=== PATIENT | female | born 2000 | race Two or more races ===

== ENCOUNTER 2025-07-26 22:43 | Emergency (ER) | payer MEDICAID, SELFPAY ==
[2025-07-26 22:44] VITALS: BMI 21.4
[2025-07-26 23:25] VITALS: BP 101/63; PULSE 62; RESP 16; TEMP 36.7; O2SAT 98
--- NOTE | 2025-07-27 00:24 | EDNOTE_ITS ---
Lower Extremity Injury RME/HPI General Chief Complaint: Extremity Problem,Nontraumatic Stated Complaint: LEFT KNEE POPPED Time Seen by Provider: 07/27/25 00:19 Arrival date/time: 07/26/25 22:43 25F with no significant PMH presents to ED with L knee pain after she twisted it and heard a pop. Limitations: no limitations Related Data Previous Rx's ?Medication ?Instructions ?Recorded dicyclomine 10 mg capsule 10 mg PO Q8HR #7 caps ondansetron 4 mg disintegrating 4 mg PO Q8H PRN nausea and 07/12/19 tablet vomiting #5 tabs Allergies Allergy/AdvReac Type Severity Reaction Status Date / Time nystatin Allergy Severe Hives Verified 07/12/19 05:53 Review of Systems Review of Systems Systems Reviewed: All systems reviewed, normal except as documented Constitutional Constitutional: Reports system reviewed and no additional complaints, except as documented, Denies fever(s) and Denies headache(s) ENT Ears, Nose, Mouth, and Throat: Denies disequilibrium and Denies headache(s) Cardiovascular Cardiovascular: Reports system reviewed and no additional complaints, except as documented, Denies chest pain and Denies dyspnea Respiratory Respiratory: Reports system reviewed and no additional complaints, except as documented, Denies cough and Denies dyspnea Gastrointestinal Gastrointestinal: Reports system reviewed and no additional complaints, except as documented, Denies abdominal pain, Denies nausea and Denies vomiting Musculoskeletal Musculoskeletal: Reports as per HPI and Reports arthralgias Neurologic Neurologic: Reports system reviewed and no additional complaints, except as documented, Denies confusion, Denies disequilibrium and Denies headache(s) Psychiatric Psychiatric: Denies confusion Past Medical History Past Medical History CARDIAC: Negative Congestive Heart Failure RESPIRATORY: Negative Chronic Obstructive Pulmonary Disease (COPD) GENITOURINARY: Negative Renal Disease ENDOCRINE: Negative Diabetes Mellitus Type 1 or Diabetes Mellitus Type 2 Social History SMOKING STATUS: Never smoker SUBSTANCE USE: does not use ED Exam General Limitations: Present no limitations General appearance: Present alert and in no apparent distress Head Head exam: Present atraumatic Eye Eye exam: Present normal appearance, PERRL and EOMI ENT ENT exam: Present normal exam, normal oropharynx and mucous membranes moist Neck Neck exam: Present normal inspection, full ROM and trachea midline Chest Chest inspection: Present normal inspection and symmetric chest wall rise Respiratory Respiratory exam: Present normal lung sounds bilaterally Cardiovascular Cardiovascular exam: Present regular rate, normal rhythm and normal heart sounds Abdominal Exam Abdominal exam: Present soft and normal bowel sounds Extremities Exam Extremities exam: Present normal inspection and full ROM Back Exam Back exam: Present normal inspection and full ROM Neurological Exam Neurological exam: Present alert, oriented X3 and CN II-XII intact Psychiatric Psychiatric exam: Present normal affect and normal mood Skin Skin exam: Present warm, dry, intact and normal color Course Quality Measures none Orders Category Date Time Status [place] wrap [Splint / Immobilizer] STAT Care 07/27/25 00:20 Active Vital Signs Vital signs: Vital Signs Temperature 98.1 F 07/26/25 23:25 Pulse Rate 62 07/26/25 23:25 Respiratory Rate 16 07/26/25 23:25 Blood Pressure 101/63 07/26/25 23:25 Pulse Oximetry (%) 98 07/26/25 23:25 Oxygen Delivery Method Room Air 07/26/25 23:25 O2 at 98% on RA and WNLs Extremity Injury, Lower MDM Narrative MDM Narrative:: 25F with no significant PMH presents to ED with L knee pain after she twisted it and heard a pop. Physical exam reveals no gross tenderness or swelling of L knee. Mostly intact ROM, there is some pain on medial side with extension. Gait mostly intact. Patient is afebrile, calm, and alert. 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 Patient declines crutches. Patient data External records reviewed:: [facility] previous records Clinical information provided by:: patient Social determinants that could affect healthcare access:: none Patient has the following chronic illnesses:: none How is presenting disease/condition affected by chronic disease/condition?: no chronic disease Evaluation data The following diagnostics were reviewed and interpreted by me:: radiology exam(s) Lab and/or radiology exams considered but not ordered:: ordered Interpretation Summary: above Medications / Prescriptions Medications or Prescriptions considered but not ordered:: not ordered Medication administrations:: n/a Consultations Consultation(s) initiated? (list below): No Diagnosis Extremity Injury, Lower Differential Diagnosis: ankle sprain and strain, acute internal derangement of knee, fracture of femur, fracture of hip, puncture wound of foot, fracture of toe and ankle fracture Most likely diagnosis given after review of the tests above:: acute internal derangement of knee Admission Indicated Admission indicated?: not indicated Admission Request Was there a request for admission?: No Disposition Plan Disposition Plan: Discharge Discharge Attestation Discharge Attestation: The patient and all family members were given an opportunity to ask questions and understood the discharge instructions. Discharge instructions specifically effects, indications for sooner follow up or return to the emergency department, and the expected course of current diagnosis. Patient condition: Stable Discharge Plan Plan Patient Disposition: HOME (Self Care) Discharge Disposition comment: Stable Prescriptions/Referrals Prescriptions/Med Rec: No Action ondansetron 4 mg tablet,disintegrating 4 mg PO Q8H PRN (Reason: nausea and vomiting) Qty: 5 0RF dicyclomine 10 mg capsule 10 mg PO Q8HR Qty: 7 0RF Problem List Clinical Impression: Acute internal derangement of left knee Patient/Caregiver Discharge Instructions Education Materials: How Your Knee Works Additional Instructions: Please follow-up with PCP within 24-48 hours and return immediately if symptoms worsen. If problem persists, recommend outpatient PT and/or MRI follow-up. In the meantime, rest, use ice/heat, and/or compression. NSAIDs like ibuprofen tend to work better for this type of pain. Print Language: Mohawk Stand Alone Forms: Patient Portal Info Letter CAT/ELIDA Supervising Physician CAT/ELIDA Supervising Physician: Dr. Sheth
== END 2025-07-27 00:47 | disposition home or self-care (01) ==
LOC: SERX 07-27 01:34
PROVIDERS: Emergency Provider Emergency Medicine; PCP Physician Assistant
DX: S83.105A Unspecified dislocation of left knee, initial encounter (principal); X50.1XXA Overexertion from prolonged static or awkward postures, initial encounter
CPT/HCPCS: 99284